=== PATIENT | female | born 1940 | race Asian ===

== ENCOUNTER 2019-09-03 15:16 | Emergency (ER) | payer OTHER, MEDICARE, MEDICAID ==
[~2019-09-03] VITALS: Ht 152.4 cm; Wt 54.4 kg
[2019-09-03 15:32] VITALS: BP 170/90
== END 2019-09-03 18:33 | disposition home or self-care (01) ==
LOC: EDBD 15:16 → ER 15:27
DX: S00.03XA Contusion of scalp, initial encounter (principal); V49.9XXA Car occupant (driver) (passenger) injured in unspecified traffic accident, initial encounter; Y93.89 Activity, other specified; Y92.488 Other paved roadways as the place of occurrence of the external cause; Y99.8 Other external cause status
CPT/HCPCS: 70450; 72125